=== PATIENT | female | born 1965 | race Hispanic/Latino ===

== ENCOUNTER 2018-06-15 18:18 | Emergency (ER) | payer BC ==
[2018-06-15 20:03] LABS: #Basophils 0.1 thou/uL (0.0-0.2); #Eosinphils 0.1 thou/uL (0.0-0.7); #Lymphocytes 1.5 thou/uL (1.20-3.40); #Monocytes 0.5 thou/uL (0.11-0.59); #Neutrophils 8.4 thou/uL (1.40-6.50); %Basophils 0.5 % (0.0-1.0); %Lymphocytes 13.9 % (21.0-51.0); %Monocytes 4.8 % (0.0-10.0); %Neutrophils 79.8 % (42.0-75.0); Hemoglobin 14.5 g/dL (12.0-16.0); Mean Corpuscular Volume 90.7 fL (78.0-98.0); Mean Platelet Volume 6.5 fL (7.4-10.4); Platelet Count 301 thou/uL (130-400); RBC Distribution Width 12.1 % (11.5-14.5); Red Blood Cell (RBC) Count 4.85 mill/uL (4.20-5.40); White Blood Cell (WBC) Count 10.6 thou/uL (4.8-10.8)
--- NOTE | 2018-06-15 20:05 | RAD ---
CHEST ONE VIEW 06/15/18 HISTORY: Chest pain and left shoulder pain without injury. Heart size is normal. The lungs are clear. No pneumonia, edema, pleural effusion, pneumothorax or oth er acute process. IMPRESSION: No significant acute intrathoracic disease. POS: [facility]
[2018-06-15 20:23] LABS: ALT (SGPT) 31 U/L (8-55); AST (SGOT) 23 U/L (5-34); Albumin 4.2 g/dL (3.5-5.0); Alkaline Phosphatase 145 U/L (40-150); Anion Gap 14 mmol/L (10-20); BUN (Urea Nitrogen) 14 mg/dL (9.8-20.1); Bilirubin, Total 0.4 mg/dL (0.2-1.2); Calc. Creatinine Clearance 0 mL/min (70-130); Calcium 9.3 mg/dL (7.8-10.44); Carbon Dioxide 29 mmol/L (22-29); Chloride 103 mmol/L (98-107); Estimated GFR-MDRD 75; Globulin 3.8 g/dL (2.4-3.5); Glucose 129 mg/dL (70-105); Potassium 3.7 mmol/L (3.5-5.1); Sodium 142 mmol/L (136-145)
== END 2018-06-15 21:49 | disposition home or self-care (01) ==
LOC: ERS 18:18
DX: K11.5 Sialolithiasis (principal); M54.12 Radiculopathy, cervical region; I10 Essential (primary) hypertension
CPT/HCPCS: 36415; 71045; 80053; 83880; 84484; 85025; 93005

== ENCOUNTER 2019-01-10 14:06 | Emergency (ER) | payer BC, OTHER ==
[2019-01-10] MEDS ORDERED: Ketorolac Tromethamine 30 MG/ML VIAL ONE (14:54)
--- NOTE | 2019-01-10 15:22 | RAD ---
4 VIEWS LEFT KNEE: Date: 01/10/19 COMPARISON: None. HISTORY: Left knee pain. FINDINGS: 4 views of the left knee show no evidence of acute fracture or dislocation. Mild degenerative change is seen in the left knee. No knee effusion is seen. IMPRESSION: Mild left knee osteoarthritis. POS: [facility]
== END 2019-01-10 15:18 | disposition home or self-care (01) ==
LOC: ERS 14:06
DX: M25.562 Pain in left knee (principal); I10 Essential (primary) hypertension; Z79.899 Other long term (current) drug therapy
CPT/HCPCS: 96372; J1885

== ENCOUNTER 2020-03-09 11:13 | Outpatient (CLI) | payer BC ==
--- NOTE | 2020-03-09 13:26 | MMO ---
Bilateral MAMMO Bilat Screen [facility]. CLINICAL HISTORY: Patient is 54 years old and is seen for screening. The patient has no family history of breast cancer. The patient has no personal history of cancer. VIEWS: The views performed were: bilateral craniocaudal with tomosynthesis and bilateral mediolateral oblique with tomosynthesis. FILMS COMPARED: The present examination has been compared to prior imaging studies performed at [facility] on 06/19/2016, 04/20/2017, 12/14/2017 and 12/16/2018. This study has been interpreted with the assistance of computer-aided detection. MAMMOGRAM FINDINGS: There are scattered fibroglandular densities. There are no suspicious masses, suspicious calcifications, or new areas of architectural distortion. IMPRESSION: THERE IS NO MAMMOGRAPHIC EVIDENCE OF MALIGNANCY. A ROUTINE FOLLOW-UP MAMMOGRAM IN 1 YEAR IS RECOMMENDED. THE RESULTS OF THIS EXAM WERE SENT TO THE PATIENT. ACR BI-RADS Category 1 - Negative MAMMOGRAPHY NOTE: 1. A negative mammogram report should not delay a biopsy if a dominant of clinically suspicious mass is present. 2. Approximately 10% to 15% of breast cancers are not detected by mammography. 3. Adenosis and dense breasts may obscure an underlying neoplasm. Reported by: NICOLETTE WILDER MD Electonically Signed: [id number]
== END 2020-03-09 11:14 | disposition home or self-care (01) ==
LOC: BICMAMMO 11:13
PROVIDERS: ATTEND Nurse Practitioner Family
DX: Z12.31 Encounter for screening mammogram for malignant neoplasm of breast (principal)
CPT/HCPCS: 77063; 77067